=== PATIENT | female | born 1975 | race Two or more races ===

== ENCOUNTER 2017-02-23 10:04 | Emergency (ER) | payer SELFPAY ==
--- NOTE | ~2017-02-23 | ER ---
PATIENT'S NAME: [facility] AGE: 41 Y [address] ROOM: [place] [address] LOCATION: [facility] ADMIT DATE: 02/23/2017 ER/Outpatient Report DISCHARGE DATE: 02/23/2017 FAMILY PHYSICIAN: PHYSICIAN, NO ATTENDING PHYSICIAN: Willie Arrington TIME OF ARRIVAL: 1004 hours. TIME OF EVALUATION: 1015 hours. CHIEF COMPLAINT: Vomiting. HISTORY OF PRESENT ILLNESS: The patient is a 41-year-old female who presents to the emergency department today with a chief complaint of vomiting. She is accompanied by her . She has also had some mid abdomen pain. It started 3 days prior to arrival. She is also having some body aches. She does have nausea and vomiting x15. No fevers or chills. No diarrhea or constipation. No urinary frequency, urgency, or painful urination. She is having body aches. Just reports the pain currently 7/10 in severity all over her belly. PAST MEDICAL HISTORY: Typhoid fever. PAST SURGICAL HISTORY: Neck in 2010. Last menstrual period was one week ago. SOCIAL HISTORY: The patient denies any tobacco, alcohol, or illicit drug use. ALLERGIES: NO KNOWN DRUG ALLERGIES. MEDICATIONS: None. PRIMARY CARE DOCTOR: None. REVIEW OF SYSTEMS: All systems are reviewed by myself and are negative with the exception of those discussed in the HPI and Past Medical History. PATIENT'S NAME: [facility] AGE: 41 Y [address] ROOM: [place] [address] LOCATION: [facility] ADMIT DATE: 02/23/2017 ER/Outpatient Report DISCHARGE DATE: 02/23/2017 FAMILY PHYSICIAN: PHYSICIAN, NO ATTENDING PHYSICIAN: Willie Arrington PHYSICAL EXAMINATION: VITAL SIGNS: Weight 67.8 kg, blood pressure 117/58, pulse 82, respiratory rate 18, temperature 97.1, and oxygen saturation 100% on room air. GENERAL: The patient is a 41-year-old female, appears stated age, in no acute distress at this time. Well developed, well nourished. HEENT: Normocephalic, atraumatic. Pupils are equal, round, and reactive to light and accommodation. Extraocular motions are intact. NECK: Supple. There is no nuchal rigidity. CARDIOVASCULAR: Regular rate and rhythm. No murmurs, rubs, or gallops. LUNGS: Clear to auscultation bilaterally. No wheezes, rales, or rhonchi. ABDOMEN: Soft, nontender, and nondistended. No rebound, rigidity, or guarding. Positive bowel sounds. MUSCULOSKELETAL: The patient moves all 4 extremities. SKIN: Warm and dry. There are no rashes or lesions noted. LABORATORY AND X-RAY DATA: Labs and x-rays are obtained. CBC is normal except for a white blood cell count of 11.1. Urinalysis is unremarkable. Urine hCG is negative. CMP is normal. LFTs normal. Lipase is normal. Procalcitonin is normal. IMPRESSION: 1. Nausea and vomiting. 2. Initial visit. EMERGENCY DEPARTMENT COURSE: The patient was brought back to the examination room. Seen and evaluated by myself. An IV is established. Laboratory analysis and imaging are obtained as described above. The patient given 1 L of normal saline IV. She is given 4 mg of Zofran IV. She is tolerating p.o. She has not had any active vomiting here in the emergency department. She feels much improved. Her abdominal exam is repeated. She continues to have a nonsurgical abdominal exam at this time. I do feel she is safe for outpatient treatment and evaluation at this time. I have discussed this with the patient and her at the bedside. Their questions were answered. I have written a prescription for Zofran for home. I have discussed return to care instructions including worsening symptoms or any other concerns, to return to the emergency department as soon as possible. I have asked that the patient follows up with her primary care doctor at [facility] in 2 to 3 days. DISPOSITION: The patient is discharged to home in good condition. PATIENT'S NAME: TABBY ROMERO [facility] AGE: 41 Y [address] ROOM: [place], [place] [address] LOCATION: [facility] ADMIT DATE: 02/23/2017 ER/Outpatient Report DISCHARGE DATE: 02/23/2017 FAMILY PHYSICIAN: PHYSICIAN, NO ATTENDING PHYSICIAN: Willie Arrington DO JAMES NAM/modl /[id number] d: 02/23/17 1629 t: 03/02/175, OUTPATIENT REPORT
[2017-02-23 10:59] LABS: BASOPHIL % 0.2 %; EOSINOPHIL % 0.3 %; HEMATOCRIT 39.6 % (33.0-46.0); HEMOGLOBIN 13.4 g/dL (10.0-15.0); IMMATURE GRANULOCYTE % 0.4 %; LYMPHOCYTE # 1.3 K/uL (0.8-4.0); MCH 30.6 pg (27.0-34.0); MCHC 33.8 gm/dL (32.0-36.5); MCV 90.4 fl (83.0-98.0); MONOCYTE # 0.5 K/uL (0.0-1.0); MONOCYTE % 4.1 %; MPV 9.7 fl (9.4-12.4); NEUTROPHIL # (ANC) 9.2 K/uL (1.8-7.8); NRBC % 0 /100WBC (0-0.00); PLATELET COUNT 260 K/uL (150-450); RBC 4.38 M/uL (3.50-5.50); WBC 11.1 K/uL (4.0-11.0)
[2017-02-23 11:08] LABS: BILIRUBIN URINE NEGATIVE (NEGATIVE); BLOOD URINE 10 /UL (NEGATIVE); COLOR URINE YELLOW (YELLOW); GLUCOSE URINE NEGATIVE (NEGATIVE); KETONE URINE NEGATIVE (NEGATIVE); LEUKOCYTES URINE 25 /UL (NEGATIVE); NITRITE URINE NEGATIVE (NEGATIVE); PROTEIN URINE 15 mg/dL (NEGATIVE); TURBIDITY URINE CLEAR (CLEAR); UROBILINOGEN URINE NORMAL (NORMAL)
[2017-02-23 11:18] LABS: BACTERIA URINE RARE (NEGATIVE); EPITHELIAL URINE 0-2 #/HPF (NEGATIVE); MUCUS URINE 2+ (NEGATIVE); RBC URINE 0-2 #/HPF (NEGATIVE); WBC URINE 0-2 #/HPF (NEGATIVE)
[2017-02-23 11:19] LABS: ALBUMIN 3.8 gm/dL (3.5-5.0); ALK PHOS 58 IU/L (33-138); ALT 22 IU/L (12-78); ANION GAP 9.9 (10.0-19.0); AST 13 IU/L (10-40); BLOOD UREA NITROGEN 10 mg/dL (6-24); CALCIUM 8.3 mg/dL (8.5-10.5); CHLORIDE 110 mMol/L (96-110); CO2 25 mMol/L (22-32); CREATININE 0.5 mg/dL (0.5-1.1); POTASSIUM 3.9 mMol/L (3.7-5.1); SODIUM 141 mMol/L (135-145); TOTAL BILIRUBIN 0.4 mg/dL (0.0-1.5); TOTAL PROTEIN 7.2 g/dL (6.0-8.4)
== END 2017-02-23 11:55 | disposition disaster alternative care site (69) ==
LOC: GMED 10:04
PROVIDERS: Emergency Medicine
DX: R11.2 Nausea with vomiting, unspecified (principal); Z98.890 Other specified postprocedural states
CPT/HCPCS: J2405; J7030